=== PATIENT | male | born 1970 | race Two or more races ===

== ENCOUNTER 2024-02-29 10:34 | Emergency (ER) | payer MEDICAID, SELFPAY ==
[2024-02-29] VITALS (12 sets, daily range): BP systolic 165–235; BP diastolic 102–170; PULSE 80–104; RESP 14–22; TEMP 36.6; O2SAT 90–100; BMI 40.0
--- NOTE | 2024-02-29 10:36 | PD.EDNEURO ---
Neuro Symptoms Deficit-RME/HPI General Chief Complaint: Altered Mental Status Stated Complaint: stroke Time Seen by Provider: 02/29/24 10:37 Arrival date/time: 02/29/24 10:34 RME / HPI RME / HPI Narrative: 53 year old male with history of hypertension, prediabetic presents to the ED BIBA from home for evaluation of altered mental status today. Per medics, on scene reported at 10:10 am patient suddenly became altered, slurring his words, and leaning to the left side. On their arrival patient was unresponsive, GCS of 3, with a G-FAST of 4, complete left sided paralysis, and maintaining his airway. On arrival to ED patient is altered and only responsive to pain. No further history obtainable. Medics additionally reported on scene stated he was at his usual state of health this morning, drove the kids to school, and after arriving home had at 10:10 am noticed the symptoms. Related Data Previous Rx's ?Medication ?Instructions ?Recorded Hydrocodone/Acetaminophen * (NORCO 1 tab PO Q4H PRN severe pain #20 11/19/14 10/325 *) tabs Allergies Allergy/AdvReac Type Severity Reaction Status Date / Time NKA* Allergy Uncoded 11/19/14 08:53 Review of Systems Review of Systems ROS Unobtainable: unobtainable due to mental status Past Medical History Past Medical History NEUROLOGIC: Negative Neurological Disorders CARDIAC: Positive Hypertension ED Exam Narrative Physical exam: GENERAL APPEARANCE: Altered, unresponsive although does respond to pain. Well-developed, well-nourished. HEENT: Normocephalic, atraumatic; Mild anisocoria, right pupil is 4mm and left pupil 3mm, reactive to light; EOMI; mucous membranes pink, moist; oropharynx clear NECK: Supple LUNGS: CTABL; no wheezes, no rales, no rhonchi HEART: Regular rate, regular rhythm; normal S1, S2; no murmurs ABDOMEN: non distended; normal BS; soft, no guarding, no rebound; no masses, no organomegaly, no hernia BACK: no CVA tenderness EXTREMITIES: atraumatic; no edema NEUROLOGIC: Unresponsive although is responsive to pain, groaning, maintaining airway SKIN: warm, dry, normal color; no rashes On reassessment at 12:00 the left pupil is pin point and right pupil is 2-3 mm and sluggish to light accomodation. Course Course Course Narrative: 1110: I updated patients and daughter on patients status and care plan. reports after returning home this morning patient had complained of a headache and laid back down. States she cleaned the house when shortly after ran outside and began vomiting. States he stumbled back inside where he sat on the bed and was very confused. states he pulled his shorts down, had a bowel movement on the bed, then rubbed stool all over and began vomiting again. Quality Measures Suspected type of Stroke: Hemmorrhagic Last known well (date): 02/29/24 Last known well (time): 10:10 Tenecteplase given: Reason(s) TPA not given: H/O intracranial hemorrhage, neoplasm, AVM, or aneurysm not given stroke Orders Category Date Time Status Bedside Blood Glucose NOW Care 02/29/24 10:36 Completed Vending Service Technician NOW Care 02/29/24 10:36 Completed Continuous Pulse Oximetry NOW Care 02/29/24 10:36 Completed EKG (ED ONLY) *Do not use* NOW Care 02/29/24 10:36 Completed In and Out Catheter NEEDED Care 02/29/24 10:36 Completed Insert IV NOW Care 02/29/24 10:36 Completed Intubation NOW Care 02/29/24 11:16 Completed NIH Stroke Scale now Care 02/29/24 10:36 Completed NPO NOW Care 02/29/24 10:36 Completed Nurse Swallow Screen x1 Care 02/29/24 10:36 Completed Consult to Neurology / Tele-Neurology Routine Cons 02/29/24 10:36 Active Transfer to another facility [Transfer/Discharge] Stat Discharge 02/29/24 11:[address] stroke protocol Stat Exams 02/29/24 10:36 Completed EKG (ED Only) Stat Exams 02/29/24 10:36 Ordered Alcohol, Blood Medical Stat Lab 02/29/24 10:46 Completed CBC Stat Lab 02/29/24 10:46 Completed Comprehensive Metabolic Panel Stat Lab 02/29/24 10:46 Completed Drug Screen,Urine Stat Lab 02/29/24 11:23 Completed Magnesium Stat Lab 02/29/24 10:46 Completed Partial Thromboplastin Time Stat Lab 02/29/24 10:46 Completed Prothrombin Time with INR Stat Lab 02/29/24 10:46 Completed Troponin I Stat Lab 02/29/24 10:46 Completed Urinalysis Stat Lab 02/29/24 11:23 Completed Urine Culture Stat Lab 02/29/24 11:23 Received Etomidate Inj [Amidate Inj] Med 02/29/24 10:49 Discontinued 20 mg .ROUTE .STK-MED ONE Etomidate Inj [Amidate Inj] Med 02/29/24 10:53 Discontinued 20 mg IVP X1 ONE Labetalol IV [Trandate IV] Med 02/29/24 12:01 Discontinued 10 mg IVP X1 ONE Labetalol IV [Trandate IV] Med 02/29/24 11:46 Discontinued 100 mg .ROUTE .STK-MED ONE Manitol Med 02/29/24 10:45 Discontinued 100 gram IV STAT STA Mannitol Inj 20% IVPB 500 ml Med 02/29/24 11:00 Discontinued IV X1 Midazolam/Ns 100 mg Ivpb [Versed Pf Inj in Ns Premix] Med 02/29/24 10:55 Discontinued 100 mg in 100 ml IV 1 mg/hr Nicardipine/Ns 20Mg Ivpb [Cardene Ivpb] Med 02/29/24 10:50 Discontinued 20 mg in 200 ml IV 5 mg/hr Ondansetron Inj [Zofran Inj] Med 02/29/24 10:36 Discontinued 4 mg IV Q4HR PRN Ondansetron Inj [Zofran Inj] Med 02/29/24 10:53 Discontinued 4 mg IV X1 ONE Rocuronium Inj [Zemuron Inj] Med 02/29/24 10:50 Discontinued 100 mg .ROUTE .STK-MED ONE Rocuronium Inj [Zemuron Inj] Med 02/29/24 10:53 Discontinued 50 mg IVP X1 ONE hydrALAZINE INJ [Apresoline Inj] Med 02/29/24 11:46 Discontinued 20 mg .ROUTE .STK-MED ONE hydrALAZINE INJ [Apresoline Inj] Med 02/29/24 12:01 Discontinued 20 mg IV X1 ONE levETIRAcetam INJ [Keppra Inj] Med 02/29/24 10:55 Discontinued 1,000 mg IVP X1 ONE Oxygen Delivery NOW RT 02/29/24 10:36 Completed Ventilator [Volume Ventilator] Stat RT 02/29/24 Active Vital Signs Vital signs: Vital Signs Temperature 98 F 02/29/24 10:45 Pulse Rate 80 01/15/25 10:45 Blood Pressure 235/170 H 02/29/24 10:45 Pulse Oximetry (%) 90 L 02/29/24 10:45 Oxygen Delivery Method Room Air 02/29/24 10:45 Procedures -ED Intubation Time out performed: Yes sedative: Etomidate Mg Given: 20 paralytic: Rocuronium Mg Given: 50 ET Tube Size: 8 ET Tube Uncuffed: No Tube Secured Depth (cm): 23 Tube Secured Location: teeth Tube Placement Confirmation: visualized tube passing through cords, equal breath sounds bilaterally, no breath sounds over epigastrium and confirmation by capnometry Patient Tolerated Procedure: well and no complications Intubation Complications: none Neuro Symptoms / Deficit MDM Narrative MDM Narrative:: Sandra Greene am scribing for and in the presence of Dr. De Leon. Patient data External records reviewed:: [facility] previous records (Per EMR review, patient has no previous visits for review. ) and EMS form Clinical information provided by:: EMS Social determinants that could affect healthcare access:: none Patient has the following chronic illnesses:: Hypertension, prediabetic How is presenting disease/condition affected by chronic disease/condition?: exacerbated by Evaluation data The following diagnostics were reviewed and interpreted by me:: lab results and radiology exam(s) Lab and/or radiology exams considered but not ordered:: None Interpretation Summary: Ordering Physician: Lien De Leon MD Date of Service: 02/29/24 Procedure(s): CT stroke protocol Accession Number(s): [id number] cc: Augusto Sena MD; NO PRIMARY/FAMILY,PHYSICIAN; Lien De Leon MD~ Examination: CT brain head without contrast. 2-D sagittal coronal reconstructions Date and time of exam:February 29, 2024 1038 hours INDICATIONS: Stroke alert, onset focal neurologic deficit including slurred speech left-sided body weakness this morning CTDI: vol (mGy):57.3 DLP: (mGycm):1185 Technique: Multiple CT axial sections of the brain have been obtained, 5 mm slice thickness. Contrast has not been administered. 2-D sagittal, coronal reconstructions have been obtained Low dose protocols were performed. One or more of the following dose reduction techniques were used; automated exposure control, adjustment of the mA and/or KV according to patient size, use of iterative reconstruction technique. Findings: Large left basal ganglia hemorrhage, at least 26 mm which has ruptured into the ventricular system, extensive hemorrhage in the left lateral ventricular system but also in the right frontal horn right lateral ventricle third ventricle aqueduct and fourth ventricle There is mass effect with shift of the frontal horns to the right at least 4 mm There is subarachnoid hemorrhage diffusely cerebral sulci There is generalized diffuse cerebral edema Tonsils have not herniated Cranial vault intact IMPRESSION: Large left basal ganglia hemorrhage which has ruptured into the ventricular system Mass effect or shift of the frontal horns to the right at least 4 mm Diffuse subarachnoid hemorrhage cerebral sulci Generalized diffuse cerebral edema Dictated By: Augusto Sena MD Signed By: <Electronically signed by Augusto Sena MD in OV> 02/29/24 1049 Medications / Prescriptions Medications or Prescriptions considered but not ordered:: None Medication administrations:: Medication Administration History Discontinued Medications Etomidate (Etomidate Inj 2 Mg/Ml Vial 10 Ml) 20 mg IVP X1 ONE Stop: 02/29/24 10:54 Last Admin: 02/29/24 11:02 Dose: 20 mg Documented By: VG Etomidate (Etomidate Inj 2 Mg/Ml Vial 10 Ml) Confirm Administered Dose 20 mg .ROUTE .STK-MED ONE Stop: 02/29/24 10:50 Last Admin: 02/29/24 11:14 Dose: Not Given Documented By: VG Non-Admin Reason: Duplicate Medication on eMAR Hydralazine HCl (Hydralazine Inj 20 Mg/Ml Vial) Confirm Administered Dose 20 mg .ROUTE .STK-MED ONE Stop: 02/29/24 11:47 Hydralazine HCl (Hydralazine Inj 20 Mg/Ml Vial) 20 mg IV X1 ONE Stop: 02/29/24 12:02 Last Admin: 02/29/24 12:00 Dose: 20 mg Documented By: ARF Mannitol (Mannitol Inj 20% Ivpb) 500 mls @ 1,000 mls/hr IV X1 ONE Stop: 02/29/24 11:29 Last Admin: 02/29/24 11:12 Dose: 1,000 mls/hr Documented By: VG Nicardipine/Sodium Chloride (Cardene Ivpb) 20 mg in 200 mls @ 50 mls/hr IV .Q4H PRN; Protocol PRN Reason: PER PROTOCOL Stop: 03/30/24 10:49 Last Admin: 02/29/24 11:05 Dose: 5 mg/hr, 50 mls/hr Documented By: CASI Midazolam HCl (Versed Pf Inj In Ns Premix) 100 mg in 100 mls @ 1 mls/hr IV .Q24H PRN; Protocol PRN Reason: PER PROTOCOL Stop: 03/05/24 10:54 Last Admin: 02/29/24 11:10 Dose: 1 mg/hr, 1 mls/hr Documented By: CASI Co-signed By: JANAK Labetalol HCl (Labetalol Inj 5 Mg/Ml Vial 20 Ml) Confirm Administered Dose 100 mg .ROUTE .STK-MED ONE Stop: 02/29/24 11:47 Labetalol HCl (Labetalol Inj 5 Mg/Ml Vial 20 Ml) 10 mg IVP X1 ONE Stop: 02/29/24 12:02 Last Admin: 02/29/24 12:00 Dose: 10 mg Documented By: NELLIE Levetiracetam (Levetiracetam Inj 100 Mg/Ml Vial 5ml) 1,000 mg IVP X1 ONE Stop: 02/29/24 10:56 Last Admin: 02/29/24 11:04 Dose: 1,000 mg Documented By: CASI Non-Formulary Medication (Manitol) 100 gram IV STAT STA Stop: 02/29/24 10:46 Last Admin: 02/29/24 11:17 Dose: Not Given Documented By: CASI Non-Admin Reason: Duplicate Medication on eMAR Ondansetron HCl (Ondansetron Inj 2 Mg/Ml Inj 2 Ml) 4 mg IV Q4HR PRN PRN Reason: NAUSEA OR VOMITING Stop: 03/30/24 10:35 Ondansetron HCl (Ondansetron Inj 2 Mg/Ml Inj 2 Ml) 4 mg IV X1 ONE; Protocol Stop: 02/29/24 10:54 Last Admin: 02/29/24 11:00 Dose: 4 mg Documented By: CASI Rocuronium [place] (Rocuronium Inj 10 Mg/Ml Vial 10 Ml) 50 mg IVP X1 ONE Stop: 02/29/24 10:54 Last Admin: 02/29/24 11:02 Dose: 50 mg Documented By: CASI Co-signed By: JANAK Rocuronium [place] (Rocuronium Inj 10 Mg/Ml Vial 10 Ml) Confirm Administered Dose 100 mg .ROUTE .STK-MED ONE Stop: 02/29/24 10:51 Last Admin: 02/29/24 11:14 Dose: Not Given Documented By: VG Non-Admin Reason: Duplicate Medication on eMAR See above Consultations Consultation(s) initiated? (list below): Yes Consultation #1 (Physician, Specialty, Details): I spoke with teleneurologist Dr. Bowser, states head CT shows IVH and is not a tpa candidate. Time: 10:50 Consultation #2 (Physician, Specialty, Details): I spoke with transfer nurse, neurosurgeons Dr. Hua and Dr. Krause at [facility]. Patient accepted for transfer. Time: 11:25 Diagnosis Neuro Differential Diagnosis: subarachnoid hemorrhage, cerebrovascular accident and transient cerebral ischemia Most likely diagnosis given after review of the tests above:: Acute hemorrhagic CVA Admission Indicated Admission indicated?: not indicated Explain why admission is indicated or not indicated:: Transfer for neurosurgery services Admission Request Was there a request for admission?: No Disposition Plan Disposition Plan: Transfer Critical Care Time Critical Care Time Critical Care Time: Yes Total Critical Care Time (min.): 60 Attestation: The high probability of sudden, clinically significant deterioration in the patient's condition required the highest level of my preparedness to intervene urgently. The services I provided to this patient were to treat and/or prevent clinically significant deterioration. Services included the following: chart data review, reviewing nursing notes and/or old charts, documentation time, consultant education collaboration regarding findings and treatment options, medication orders and management, direct patient care, vital sign assessments and ordering, interpreting and reviewing diagnostic studies and lab tests. Aggregate critical care time includes only time during which I was engaged in work directly related to the patient's care, as described above, whether at bedside or elsewhere in the Emergency Department. It did not include time spent performing other reported procedures or the services of residents, students, nurses or physician assistants. Discharge Plan Plan Patient Disposition: [facility] Care [facility] Facility Pt Being Transferred to: [facility] Service Needed for Transfer: Neurosurgery Prescriptions/Referrals Prescriptions/Med Rec: No Action Hydrocodone/Acetaminophen * (NORCO 10/325 *) 1 TAB tablet 1 tab PO Q4H PRN (Reason: severe pain) Qty: 20 0RF Referrals: No Primary/Family,Physician [Referring Provider] - In 1 week Problem List Clinical Impression: Hemorrhagic stroke Patient/Caregiver Discharge Instructions Print Language: Yi Stand Alone Forms: Salma Award Info., Patient Portal Info Letter
--- NOTE | 2024-02-29 10:40 | PC.NURSE ---
PT BIBA FOR STROKE ALERT - TAKEN STRAIGHT TO CT SCAN AND SHOWED BLEED. PT WAS AT HOME WITH WHEN NOTICED THAT HE STARTED TO SLUR HIS SPEECH, HAVE LEFT SIDED WEAKNESS, AND WENT UNRESPONSIVE. SHE IMMEDIATELY CALLED 911 PT PRESENTS AT A GCS 3, SNORING RESPIRATIONS, PUPILS REACTIVE TO LIGHT. PER FAMILY PT HAS HIGH BLOOD PRESSURE. NO OTHER MEDICAL HISTORY KNOWN AT THIS TIME.
[2024-02-29 10:51] LABS: Basophils # (Auto) 0.1 Thou/mm3 (0.0-0.2); Basophils % (Auto) 0 % (0-2.5); Eosinophils # (Auto) 0.3 Thou/mm3 (0.0-0.5); Eosinophils % (Auto) 2 % (0-10); Hematocrit 48.7 % (41.0-53.0); Hemoglobin 16.6 g/dL (13.5-16.0); Immature Granulocytes % (Auto) 1 % (0-0); Immature Granulocytes Auto 0.07 Thou/mm3 (0.00-0.00); Lymphocytes # (Auto) 2.7 Thou/mm3 (1.0-4.8); Lymphocytes % (Auto) 22 % (10-50); Mean Corpuscular HGB Conc 34.1 g/dl (31.0-37.0); Mean Corpuscular Hemoglobin 28.3 pg (25.0-35.0); Mean Corpuscular Volume 83 fL (80-100); Monocytes # (Auto) 1.1 Thou/mm3 (0.0-0.8); Monocytes % (Auto) 8 % (0-12); Neutrophils # (Auto) 8.4 Thou/mm3 (1.8-7.7); Neutrophils % (Auto) 67 % (37-80); Nucleated Red Blood Cell % 0 /100 WBC (0); Platelet Count 258 Thou/mm3 (140-440); RDW Standard Deviation 40.2 fL (35.1-43.9); Red Blood Count 5.86 Miln/mm3 (4.50-5.90); White Blood Count 12.5 Thou/mm3 (3.8-10.6)
--- NOTE | 2024-02-29 10:53 | PD.TNEURO ---
Tele Neuro Consultation Consultation Date 02/29/24 Consultation Narrative [facility] TeleNeurology Consult Services Patient Name:???Anuel Granados Date of :???1970 Identification Number:??? Date of Service:???02/29/2024 10:31:18 Diagnosis:?I61.8 - Other intracerebral hemorrhage Impression: Patient presented obtunded. Head CT shows large IVH. I ordered Manitol 100g STAT. Would need aggressive BP control and neurosurgical interventions. Recommendation: Diagnostic Studies: ?Repeat CT head in first 8-12hrs Laboratory Studies:? INR/PT ? aPTT? CBC Medications:? Hold?antiplatelet?therapy/NSAIDS/Anticoagulation Nursing Recommendations: ? Telemetry, IV Fluids?Avoid dextrose containing fluids, Maintain euglycemia ? Head of bed 30 degrees ? Neuro checks q1-2?hrs?during ICU stay ? Once stable neuro checks q4?hrs ? keep BP less than 140/90's with goal of 130/80s Consultations: ? Need Neurosurgery consultation?STAT DVT Prophylaxis: ? SCDs Disposition: ? Neurology will Follow Metrics: Last Known Well: 02/29/2024 10:10:00 Dispatch Time: 02/29/2024 10:31:16 Arrival Time: 02/29/2024 10:34:00 Initial Response Time: 02/29/2024 10:40:00Symptoms: Slurred speech. . Initial patient interaction: 02/29/2024 10:45:35 NIHSS Assessment Completed: 02/29/2024 10:48:37Patient is not a candidate for Thrombolytic. Thrombolytic Medical Decision: 02/29/2024 10:48:38Patient was not deemed candidate for Thrombolytic because of following reasons: History of previous intracranial hemorrhage, intracranial neoplasm . I personally Reviewed the CT Head and it Showed IVH Primary Provider Notified of Diagnostic Impression and Management Plan on: 02/29/2024 10:50:05 History of Present Illness:Patient is a 53 year old Male. Patient was brought by EMS for symptoms of Slurred speech. . Past medical history of Hypertension presented obtunded. History was provided by the RN at bedside. Last seen normal was around 1010. They just came back home and became unresponsive. Witnessed by spouse. ON arrival patient was found to be hypertensive. ? Medications: Anticoagulant use:??Unknown Antiplatelet use:?Unknown Reviewed EMR for current medications Allergies:? Reviewed Allergies Unable To Obtain Due To:?Patient Is Obtunded/ Comatose Social History: Unable To Obtain Due To Patient Status :?Patient Is Obtunded/ Comatose Family History: Family History Cannot Be Obtained Because:Patient Is Obtunded/ Comatose ROS :?ROS Cannot Be Obtained Because:? Patient Is Obtunded/ Comatose Past Surgical History: Past Surgical History Cannot Be Obtained Because: Patient Is Obtunded/ Comatose There Is No Surgical History Contributory To Today?s Visit ? Examination: BP(238/170),?Pulse(55), 1A: Level of Consciousness - Postures or Unresponsive?+ 3 1B: Ask Month and Age - Could Not Answer Either Question Correctly?+ 2 1C: Blink Eyes & Squeeze Hands - Performs 0 Tasks?+ 2 2: Test Horizontal Extraocular Movements - Normal?+ 0 3: Test Visual Hutchinson - No Visual Loss?+ 0 4: Test Facial Palsy (Use Grimace if Obtunded) - Normal symmetry?+ 0 5A: Test Left Arm Motor Drift - No Movement?+ 4 5B: Test Right Arm Motor Drift - No Movement?+ 4 6A: Test Left Leg Motor Drift - No Movement?+ 4 6B: Test Right Leg Motor Drift - No Movement?+ 4 7: Test Limb Ataxia (FNF/Heel-Chambers) - No Ataxia?+ 0 8: Test Sensation - Normal; No sensory loss?+ 0 9: Test Language/Aphasia - Coma/Unresponsive?+ 3 10: Test Dysarthria - Mute/Anarthric?+ 2 11: Test Extinction/Inattention - No abnormality?+ 0 NIHSS Score:?28 ICH Score: 3 Segun Coma Score:3-4 (+2) Age >= 80:No (0) ICH volume >= 30mL:No (0) Intraventricular hemorrhage:Yes (+1) Infratentorial origin of hemorrhage:No (0) Pre-Morbid Modified Bethel Scale:0 Points = No symptoms at all This consult was conducted in real time using interactive audio and video technology. Patient was informed of the technology being used for this visit and agreed to proceed. Patient located in hospital and provider located at home/office setting. Due to the immediate potential for life-threatening deterioration due to underlying acute neurologic illness, I spent 30 minutes providing critical care. This time includes time for face to face visit via telemedicine, review of medical records, imaging studies and discussion of findings with providers, the patient and/or family. Dr Roque Carranza-Angelica Bowser [facility] For Inpatient follow-up with [facility] physician please call [facility] at . As we are not an outpatient service for any post hospital discharge needs please contact the hospital for assistance. If you have any questions for the [facility] physicians or need to reconsult for clinical or diagnostic changes please contact us via [facility] at .
--- NOTE | 2024-02-29 10:58 | PC.CM ---
Addendum entered by Noman Saavedra RN 02/29/24 12:18: 1212 sent paperwork to [facility] spoke to Dalia and she confirmed that she received the paperwork. 1154 Made 2 transfer packets. 1 for [facility] with CD inside and 1 for [facility]. Completed all signatures. Gave transfer packets to charge nurse and number to call for report is on tracker. 1140 Received call from Benita at [facility]. Pt is accepted for ED to ED transfer. Accepting is Eloisa Pierre Number to call for report is [phone]. I updated Benita that [facility] is here at bedside. Addendum entered by Noman Saavedra RN 02/29/24 12:18: 1130 [facility] is already at bedside to transport the pt Addendum entered by Noman Saavedra RN 02/29/24 12:16: 1120 received call from Benita at [facility]. She wants to connect [facility] neurosurgeon Dr. Hua with Dr. De Leon for peer to peer. Then Dr. Ramirez neuro critical care unit was also added in peer to peer. Total call time 18 min. Addendum entered by Noman Saavedra RN 02/29/24 11:09: 1109 images pushed to [facility] through [employer]. Addendum entered by Noman Saavedra RN 02/29/24 11:07: 1102 Called [facility], spoke to Donna to setup the transport. She stated she will call back after flight check. Addendum entered by Noman Saavedra RN 02/29/24 11:01: 1057 clinicals faxed to [facility] ED directly and face sheet to [facility]. Addendum entered by Noman Saavedra RN 02/29/24 10:59: 1050 called [facility], spoke to Lien and initiated the transfer. She stated to fax clinicals directly to [facility] ED at [phone] and nurse will give me a call after reviewing the clinicals. Original Note: 1049 received call from charge nurse pt needs to be transferred for hemorrhagic stroke needs neuro-surgical services.
[2024-02-29] MEDS: ONDANSETRON INJ 2 MG/ML INJ 2 ML 4 MG IV (11:00)
[2024-02-29] MEDS: ROCURONIUM INJ 10 MG/ML VIAL 10 ML 50 MG IVP (11:02)
[2024-02-29] MEDS: ETOMIDATE INJ 2 MG/ML VIAL 10 ML 20 MG IVP (11:02)
[2024-02-29] MEDS: levETIRAcetam INJ 100 MG/ML VIAL 5ML 1000 MG IVP (11:04)
[2024-02-29] MEDS: NICARDIPINE/NS 20MG IVPB 20 MG/200 ML BAG 50 MG IV (11:05)
[2024-02-29] MEDS: MIDAZOLAM/NS 100 MG IVPB 100 MG/100 ML BAG IV (11:10)
[2024-02-29] MEDS: MANNITOL 20% 1000 ML IV (11:12)
[2024-02-29 11:13] LABS: Partial Thromboplastin Time 23.9 Seconds (22.0-36.0); Prothrombin Time 11.4 Seconds (9.0-12.2)
[2024-02-29 11:24] LABS: Alanine Aminotransferase 27 U/L (10-49); Albumin, Serum 5.1 gm/dL (3.5-5.0); Albumin/Globulin Ratio 1.8 (1.2-2.2); Alcohol, Blood Medical < 3.0 mg/dL (0-10.0); Alkaline Phosphatase 99 U/L (46-116); Anion Gap 10 (7-16); Aspartate Amino Transferase 23 U/L (0-34); BUN/Creatinine Ratio 15 Ratio (12-20); Blood Urea Nitrogen 12 mg/dL (9-23); Calcium 9.6 mg/dL (8.3-10.6); Calcium (Corrected) 9.6 mg/dL (8.5-10.1); Carbon Dioxide 25.9 mMol/L (20.0-31.0); Chloride 100 mMol/L (98-107); Creatinine (Component) 0.8 mg/dL (0.6-1.3); Globulin 2.8 gm/dL (2.3-3.5); Glucose 143 mg/dL (74-106); Osmolality,Calculated 273 (275-295); Potassium 3.2 mMol/L (3.4-5.1); Sodium 136 mMol/L (136-145); Total Protein 7.9 gm/dL (5.7-8.2); Troponin I < 0.020 ng/mL (0.0-0.045); eGFR > 60 See Note
[2024-02-29 11:37] LABS: Collection Type, Urine Catheter; Squamous Epithelial Cell,Urine 0 /hpf (0-5)
[2024-02-29 11:45] LABS: Bilirubin,Urine Negative (Negative); Blood,Urine Negative (Negative); Clarity,Urine Clear (Clear/Hazy); Color,Urine Lt-Yellow (Lt Yel-Yel); Glucose, Urine Negative (Negative); Ketones,Urine Negative (Negative); Leukocyte Esterase,Urine Negative (Negative); Nitrite,Urine Negative (Negative); Protein,Urine 2+ (Neg - Trace); RBC,Urine 2 /hpf (0-3); Specific Gravity,Urine 1.014 (1.001-1.035); Urobilinogen,Urine Negative mg/dL (0.0-1.0); WBC,Urine 1 /hpf (0-5)
--- NOTE | 2024-02-29 11:45 | PC.RT ---
[facility] team at bedside with patient. ABG unsuccessful. No specimen obtained for sample
[2024-02-29 11:48] LABS: Amphetamine/Methamp Scrn,U Negative (Negative); Barbiturate Screen,Urine Negative (Negative); Benzodiazepines Screen,Urine Negative (Negative); Benzoylecgonine Screen, Ur Negative (Negative); Fentanyl Screen,Urine Negative (Negative); Opiate Screen,Urine Negative (Negative); THC Screen,Urine Negative (Negative)
[2024-02-29] MEDS: hydrALAZINE INJ 20 MG/ML VIAL IV (12:00)
[2024-02-29] MEDS: LABETALOL INJ 5 MG/ML VIAL 20 ML 10 MG IVP (12:00)
--- NOTE | 2024-02-29 12:27 | PC.NURSE ---
GAVE REPORT TO NUBIA AT [facility]
== END 2024-02-29 12:30 | disposition short-term general hospital (02) ==
PROVIDERS: Emergency Provider Emergency Medicine; PCP Physician Assistant
DX: I60.9 Nontraumatic subarachnoid hemorrhage, unspecified (principal); R47.81 Slurred speech; G81.94 Hemiplegia, unspecified affecting left nondominant side; I10 Essential (primary) hypertension; R29.728 NIHSS score 28; Z75.1 Person awaiting admission to adequate facility elsewhere
CPT/HCPCS: 31500; 36415; 36600; 70450; 80053; 80307; 80320; 81001; 82803; 83735; 84484; 85025; 85610; 85730; 87086; 87205; 94002; 96374; 96375; 99291; J0360; J1953; J2251; J2404; J2405; J3490; G0480; J1920

== ENCOUNTER → 2024-04-18 | Outpatient (CLI) | payer MEDICAID, SELFPAY ==
--- NOTE | 2024-04-18 16:00 | XR_ITS ---
Examination: CT brain head without contrast. 2-D sagittal coronal reconstructions Date and time of exam:April 18, 2024 1628 hours Comparison February 29, 2024 INDICATIONS: History CVA, hemorrhage in the left basal ganglia ruptured into the ventricular system on CT stroke brain study February 29, 2024 CTDI: vol (mGy):53.4 DLP: (mGycm):1127 Technique: Multiple CT axial sections of the brain have been obtained, 5 mm slice thickness. Contrast has not been administered. 2-D sagittal, coronal reconstructions have been obtained Low dose protocols were performed. One or more of the following dose reduction techniques were used; automated exposure control, adjustment of the mA and/or KV according to patient size, use of iterative reconstruction technique. Findings: No significant ventricular enlargement. Small left parietal infarct Cerebral calcifications Intra-axial or extra-axial hemorrhage density is not seen. No mass effect or midline shift Basal cisterns are not remarkable. Fourth ventricle is midline. Right frontal kaycee hole Impression: Brain and ventricular hemorrhage have cleared Ventricles are normal in size
== END | disposition home or self-care (01) ==
PROVIDERS: PCP Specialist; Referring Provider Specialist; Visit Provider Specialist
DX: I61.5 Nontraumatic intracerebral hemorrhage, intraventricular (principal)
CPT/HCPCS: 70450